=== PATIENT | male | born 1935 | race Caucasian/White ===

== ENCOUNTER → 2016-04-18 | Outpatient (CLI) | payer OTHER ==
[~2016-04-18] MED LIST: ADULT LOW DOSE81 M1 PO; AMLODIPINE BESY10 MG PO; ASPIRIN81 M1 PO; ATENOLOL25 M1 PO; CLONIDINE HCL0.1 MG PO; COUMADIN,JANTOVE1 MG PO; CRESTOR10 MG PO; CRESTOR5 MG PO; DETROL LA4 MG PO; Ditropan PO; ELIQUIS5 MG PO; FISH OIL 1,001000 MG PO; GEMFIBROZIL600 MG PO; HEARTBURN150 MG PO; HYDROCHLOROTHIA50 MG PO; LOPID600 MG PO; LOVAZA1 GM PO; Levothroid,Synthroid PO; Lopid PO; MECLIZINE HCL25 MG PO; METAMUCIL MULT425 GM PO; METAMUCIL0.52 GM PO; METAMUCIL1 EACH PO; METOPROLOL SUCC50 MG PO; Metamucil Packet PO; OMEGA 3-6-9 11200 MG PO; OxyCODONE PO; OxyCONTIN PO; PLAVIX75 MG PO; PLENDIL5 MG PO; PRILOSEC20 MG PO; Plendil PO; SENOKOT S,PE1 TABLET PO; SPECTAZOLE15 GM PO; SYMBICORT60 INHALAT IH; SYNTHROID150 MCG PO; SYNTHROID25 MCG PO; TOVIAZ8 MG PO; TRAMADOL HCL50 MG PO; Tenormin PO; Tylenol Regular Stre PO; VESICARE5 MG PO; VITAMIN B-121000 MCG PO; VITAMIN D2000 INTUN PO; ZANTAC150 M1 PO; ZYLOPRIM100 MG PO
== END | disposition home or self-care (01) ==
LOC: RAD 04-15 13:00 → EDSTATUS 04-15 13:00 → RAD 12:02
DX: I70.90 Unspecified atherosclerosis (principal); I48.0 Paroxysmal atrial fibrillation; I49.5 Sick sinus syndrome
CPT/HCPCS: 71275

== ENCOUNTER 2016-05-01 09:58 | Emergency (ER) | payer OTHER ==
[~2016-05-01] VITALS: Ht 180.3 cm; Wt 112.5 kg
[2016-05-01 10:38] LABS: BASOPHIL COUNT 0.1 K/uL (0-0.1); EOSINOPHIL (%) 1.2 % (0-5); EOSINOPHIL COUNT 0.1 K/uL (0-0.3); HEMATOCRIT 37.5 % (38.0-50.0); IMMATURE GRANULOCYTE (%) 0.3 % (0.0-0.7); IMMATURE GRANULOCYTE COUNT 0.2 K/uL; LYMPHOCYTE COUNT 1.8 K/uL (1.0-2.8); MCH 28.3 PG (29.0-34.0); MCHC 33.9 G/DL (30.0-36.0); MCV 83.7 FL (86-99); MEAN PLAT.VOLUME 11.5 uM^3 (9.0-12.4); MONOCYTE (%) 5.9 % (3-12); MONOCYTE COUNT 0.5 K/uL (0-0.8); NEUTROPHIL (%) 68.2 % (45-76); NEUTROPHIL COUNT 5.2 K/uL (1.8-6.4); PLATELET COUNT 204 K/uL (156-360); RBC DIS.WIDTH-CV 14.7 % (11.8-14.6); RED BLOOD COUNT 4.48 M/uL (4.00-5.50)
[2016-05-01 10:40] LABS: WHITE BLOOD COUNT 7.6 K/uL (4.1-10.2)
[2016-05-01 10:48] LABS: CHLORIDE 109 mEq/L (99-109); SODIUM 142 mEq/L (136-147)
[2016-05-01 10:50] LABS: GLUCOSE 186 mg/dL (70-99); POTASSIUM 3.9 mEq/L (3.7-5.4)
[2016-05-01 10:52] LABS: ANION GAP 17 MEQ/L (2-14)
[2016-05-01 10:54] LABS: GFR ESTIMATE (CALCULATED) 39 mL/min/
[2016-05-01 10:55] LABS: UREA NITROGEN (BUN) 28 mg/dL (9-23)
[2016-05-01] MEDS ORDERED: SYNTHROID200 MCG PO (13:51)
[2016-05-01] MEDS ORDERED: CYANOCOBALAM1000 MCG PO (13:51)
[2016-05-01] MEDS ORDERED: FISH OIL DR 1,1 EAC1 PO (13:53)
[2016-05-01] MEDS ORDERED: LOPRESSOR25 MG PO (13:53)
[2016-05-01] MEDS ORDERED: LISINOPRIL5 MG PO (13:55)
[2016-05-01] MEDS ORDERED: VITAMIN D31000 UNI2 PO (13:55)
[2016-05-01] MEDS ORDERED: DILTIAZEM ER60 MG PO (13:55)
[2016-05-01] MEDS ORDERED: PACERONE200 MG PO (13:55)
[2016-05-01 15:11] LABS: CHLORIDE 111 mEq/L (99-109); SODIUM 142 mEq/L (136-147)
[2016-05-01 15:13] LABS: GLUCOSE 147 mg/dL (70-99)
[2016-05-01 15:14] LABS: ANION GAP 11 MEQ/L (2-14)
[2016-05-01 15:17] LABS: GFR ESTIMATE (CALCULATED) 41 mL/min/; UREA NITROGEN (BUN) 28 mg/dL (9-23)
[2016-05-01 15:23] LABS: POTASSIUM 4.9 mEq/L (3.7-5.4)
[2016-05-01 16:47] VITALS: BP 132/69
== END 2016-05-01 16:49 | disposition home or self-care (01) ==
LOC: EME 09:58
PROVIDERS: Emergency Medicine; Nurse Practitioner Family
DX: R42 Dizziness and giddiness (principal); I48.91 Unspecified atrial fibrillation; E86.0 Dehydration; E78.5 Hyperlipidemia, unspecified; I10 Essential (primary) hypertension; E03.9 Hypothyroidism, unspecified; Z85.46 Personal history of malignant neoplasm of prostate; Z87.891 Personal history of nicotine dependence
CPT/HCPCS: 70450; 71010; 80048; 80048 91; 85025; 93005; 99281; 99284; J2405; J2765; J7030

== ENCOUNTER 2017-06-29 08:22 | Emergency (ER) | payer OTHER ==
[~2017-06-29] VITALS: Ht 180.3 cm; Wt 101.6 kg
[~2017-06-29 08:22] MED LIST changes: +CYANOCOBALAM1000 MCG PO; +DILTIAZEM ER60 MG PO; +FISH OIL DR 1,1 EAC1 PO; +LISINOPRIL5 MG PO; +LOPRESSOR25 MG PO; +PACERONE200 MG PO; +SYNTHROID200 MCG PO; +VITAMIN D31000 UNI2 PO
[2017-06-29 10:47] VITALS: BP 128/65
== END 2017-06-29 10:47 | disposition home or self-care (01) ==
LOC: EME 08:22
DX: L76.21 Postprocedural hemorrhage of skin and subcutaneous tissue following a dermatologic procedure (principal); I73.9 Peripheral vascular disease, unspecified; Z79.01 Long term (current) use of anticoagulants; Z85.828 Personal history of other malignant neoplasm of skin; J44.9 Chronic obstructive pulmonary disease, unspecified; E78.5 Hyperlipidemia, unspecified; I10 Essential (primary) hypertension; K21.9 Gastro-esophageal reflux disease without esophagitis; E03.9 Hypothyroidism, unspecified; Z87.442 Personal history of urinary calculi; Z85.46 Personal history of malignant neoplasm of prostate; Z87.891 Personal history of nicotine dependence; Z88.8 Allergy status to other drugs, medicaments and biological substances
CPT/HCPCS: 99281; 99285

== ENCOUNTER → 2017-10-29 | Outpatient (CLI) | payer OTHER ==
[~2017-10-29] MED LIST changes: +CATAPRES0.1 MG PO; +CILOSTAZOL50 MG PO; +FAMOTIDINE20 MG PO; +JANUVIA25 MG PO; +SYNTHROID175 MCG PO; +TOPROL XL25 MG PO
== END | disposition home or self-care (01) ==
LOC: NUC 08:31
DX: R94.8 Abnormal results of function studies of other organs and systems (principal); M47.892 Other spondylosis, cervical region; M19.012 Primary osteoarthritis, left shoulder; M19.011 Primary osteoarthritis, right shoulder; Z96.653 Presence of artificial knee joint, bilateral; M25.561 Pain in right knee
CPT/HCPCS: 78315; A9503

== ENCOUNTER 2017-11-03 09:51 | Observation (INO) | payer OTHER ==
[~2017-11-03] VITALS: Ht 180.3 cm; Wt 103.9 kg
[~2017-11-03 09:51] MED LIST changes: -CATAPRES0.1 MG PO; -CILOSTAZOL50 MG PO; -FAMOTIDINE20 MG PO; -JANUVIA25 MG PO; -SYNTHROID175 MCG PO; -TOPROL XL25 MG PO
[2017-11-03 12:32] LABS: BASOPHIL (%) 1.1 % (0-1); BASOPHIL COUNT 0.1 K/uL (0-0.1); EOSINOPHIL (%) 4.2 % (0-5); EOSINOPHIL COUNT 0.2 K/uL (0-0.3); HEMATOCRIT 41.8 % (38.0-50.0); HEMOGLOBIN 14.6 G/DL (12.5-16.6); IMMATURE GRANULOCYTE (%) 0.7 % (0.0-0.7); LYMPHOCYTE (%) 32.1 % (15-42); LYMPHOCYTE COUNT 1.5 K/uL (1.0-2.8); MCH 30.2 PG (29.0-34.0); MCHC 34.9 G/DL (30.0-36.0); MCV 86.5 FL (86-99); MONOCYTE (%) 9.3 % (3-12); MONOCYTE COUNT 0.4 K/uL (0-0.8); NEUTROPHIL (%) 52.6 % (45-76); NEUTROPHIL COUNT 2.4 K/uL (1.8-6.4); PLATELET COUNT 211 K/uL (156-360); RBC DIS.WIDTH-CV 14.3 % (11.8-14.6); RED BLOOD COUNT 4.83 M/uL (4.00-5.50); WHITE BLOOD COUNT 4.5 K/uL (4.1-10.2)
[2017-11-03 12:41] LABS: INTER. NORMALIZED RATIO 1.2
[2017-11-03 12:42] LABS: CHLORIDE 106 mEq/L (99-109); POTASSIUM 4.5 mEq/L (3.7-5.4); SODIUM 138 mEq/L (136-147)
[2017-11-03 12:43] LABS: GLUCOSE 106 mg/dL (70-99); PTT 36.6 SEC (25-37)
[2017-11-03 12:47] LABS: CREATININE 2.1 mg/dL (0.6-1.3); GFR ESTIMATE (CALCULATED) 32 mL/min/ (58.99-99999)
[2017-11-03 12:48] LABS: UREA NITROGEN (BUN) 31 mg/dL (9-23)
[2017-11-03 13:19] LABS: HDL CHOLESTEROL 25 MG/DL (Desirable>=40); LDL CHOLESTEROL 127 mg/dL (Desirable<100); NON-HDL CHOLESTEROL 185 mg/dL (Desirable<160); TOTAL CHOLESTEROL 210 mg/dL (Desirable<200); TRIGLYCERIDES 289 MG/DL (Normal: <150)
[2017-11-03 14:48] LABS: HEMOGLOBIN A1c (GLYCOHEMOGLOB) 6.1 % (Below 5.7)
[2017-11-03 16:48] LABS: DIGOXIN < 0.3 ng/mL (0.8-2.0)
[2017-11-03 17:15] VITALS: BP 178/84
[2017-11-03 20:01] VITALS: BP 161/78
[2017-11-03] MEDS ORDERED: SYNTHROID175 MCG PO (20:34)
[2017-11-03] MEDS ORDERED: CATAPRES0.1 MG PO (20:34)
[2017-11-03] MEDS ORDERED: TOPROL XL25 MG PO (20:35)
[2017-11-03] MEDS ORDERED: CILOSTAZOL50 MG PO (20:36)
[2017-11-03] MEDS ORDERED: JANUVIA25 MG PO (20:37)
[2017-11-03] MEDS ORDERED: FAMOTIDINE20 MG PO (20:37)
[2017-11-03 23:59] VITALS: BP 160/80
[2017-11-04 05:09] VITALS: BP 156/83
[2017-11-04 08:00] VITALS: BP 186/89
[2017-11-04 11:48] VITALS: BP 176/72
== END 2017-11-04 12:03 | disposition home or self-care (01) ==
LOC: EME 09:51 → EDOF 13:49 → 4SOUTH 13:49 → ENRESERV 13:50 → 4SOUTH 16:57
PROVIDERS: Physician Assistant
PROC: B246ZZZ Ultrasonography of Right and Left Heart (ICD-10-PCS; principal; 2017-11-03)
DX: H53.8 Other visual disturbances (principal); R42 Dizziness and giddiness; E86.0 Dehydration; I10 Essential (primary) hypertension; I25.10 Atherosclerotic heart disease of native coronary artery without angina pectoris; E78.5 Hyperlipidemia, unspecified; I73.9 Peripheral vascular disease, unspecified; I36.1 Nonrheumatic tricuspid (valve) insufficiency; I48.91 Unspecified atrial fibrillation; Z98.890 Other specified postprocedural states; Z85.46 Personal history of malignant neoplasm of prostate; E03.9 Hypothyroidism, unspecified; K22.70 Barrett's esophagus without dysplasia; Z85.828 Personal history of other malignant neoplasm of skin; Z82.49 Family history of ischemic heart disease and other diseases of the circulatory system
CPT/HCPCS: 70450; 70551; 80048; 80061; 80162; 83036; 85025; 85610; 85730; 93005; 93306; 93880; 99281; 99284; G0378; J1644; J7030